=== PATIENT | female | born 1960 | race Caucasian/White ===

== ENCOUNTER 2020-10-28 08:42 | Outpatient (CLI) | payer BC, SELFPAY ==
--- NOTE | 2020-10-28 08:50 | MM_ITS ---
WS: [id number] BILATERAL DIGITAL SCREENING MAMMOGRAM WITH CAD CLINICAL INFORMATION: SCREENING HISTORY: Screening mammogram. No current complaints. COMPARISON: March 29, 2019 TECHNIQUE: Bilateral CC and MLO. FINDINGS: The breast are composed of extremely dense tissue, which can limit the detection of small underlying mass lesions. No suspicious focal mass, asymmetry, calcifications, or architectural distortion. No ev idence of malignancy. A few punctate calcifications. Vascular calcification. MM/[place] [id number] IMPRESSION: BI-RADS: 2-Benign FOLLOW UP: 1 Year Follow-up Recommend return to annual screening mammography.
== END 2020-10-28 08:43 | disposition home or self-care (01) ==
LOC: RADSHAW 08:49
PROVIDERS: PCP Nurse Practitioner Family; Visit Provider Nurse Practitioner Family
DX: Z12.31 Encounter for screening mammogram for malignant neoplasm of breast (principal)
CPT/HCPCS: 77067

== ENCOUNTER → 2021-04-18 08:34 | Outpatient (BNVA) | payer BC, SELFPAY | PROVIDERS: PCP Nurse Practitioner Family; Visit Provider Obstetrics & Gynecology | DX: N89.8 Other specified noninflammatory disorders of vagina (principal); L28.0 Lichen simplex chronicus | CPT/HCPCS: 87481; 87512; 87798; 87799 ==

== ENCOUNTER → 2021-09-03 13:56 | Outpatient (BNVA) | payer BC, SELFPAY | PROVIDERS: PCP Nurse Practitioner Family; Referring Provider Nurse Practitioner Family; Visit Provider Podiatrist Foot & Ankle Surgery | DX: M21.42 Flat foot [pes planus] (acquired), left foot (principal); M77.32 Calcaneal spur, left foot; M77.31 Calcaneal spur, right foot | CPT/HCPCS: 73630 ==

== ENCOUNTER 2022-02-04 14:02 | Outpatient (CLI) | payer BC, SELFPAY ==
--- NOTE | 2022-02-04 14:14 | MM_ITS ---
WS: [email or web address] VIEWS: MLO and CC views both breasts. 3D digital tomosynthesis is also included in this exam. Comparison made with prior exam of 11/28/2019. Findings: There was no sign of mass, architectural distortion or suspicious calcification in either breast. He terogeneously dense MM/[place] [id number] Impression: BI-RADS: 2-Benign FOLLOW-UP: 1 Year Follow-up This mammogram was also analyzed by the Computer Aided Detection System [employer].
== END 2022-02-04 14:03 | disposition home or self-care (01) ==
LOC: RADSHAW 14:04
PROVIDERS: PCP Nurse Practitioner Family; Visit Provider Nurse Practitioner Family
DX: Z12.31 Encounter for screening mammogram for malignant neoplasm of breast (principal)
CPT/HCPCS: 77063; 77067

== ENCOUNTER 2023-03-03 08:18 | Outpatient (CLI) | payer BC, SELFPAY ==
--- NOTE | 2023-03-03 08:35 | MM_ITS ---
WS: [email or web address] VIEWS: MLO and CC views both breasts. 3D digital tomosynthesis is also included in this exam. Comparison made with prior exam of 04/29/2016, 12/28/2016, 01/12/2018, 03/29/2019, 10/28/2020, 02/04/2022.. Findings: There was no sign of mass, architectural distortion or suspicious calcification in either breast. Th e breasts are heterogeneously dense MM/[place] [id number] Impression: BI-RADS: 2-Benign FOLLOW-UP: 1 Year Follow-up This mammogram was also analyzed by the Computer Aided Detection System R2 Imag e Pediatric Surgeon.
== END 2023-03-03 08:19 | disposition home or self-care (01) ==
PROVIDERS: PCP Nurse Practitioner Family; Visit Provider Nurse Practitioner Family
DX: Z12.31 Encounter for screening mammogram for malignant neoplasm of breast (principal)
CPT/HCPCS: 77063; 77067

== ENCOUNTER 2023-08-19 06:20 | Day surgery (SDC) | payer BC, SELFPAY ==
[2023-08-17 10:12] VITALS: BMI 27.8
[2023-08-19 06:33] VITALS: BP 150/94; PULSE 86; RESP 16; TEMP 36.2; O2SAT 96; BMI 27.8
[2023-08-19] MEDS: sodium chloride 0.9% 1,000 ML 30 ML IV (06:40)
--- NOTE | 2023-08-19 06:55 | ANES.PREANE2 ---
Pre-Anesthetic Assessment Height/Weight: Height 1.55 m Weight 66.678 kg Temp Pulse Resp BP Pulse Ox O2 Del Method 97.2 F L 86 16 150/94 96 Room Air 08/19/23 06:33 08/19/23 06:33 08/19/23 06:33 08/19/23 06:33 08/19/23 06:33 08/19/23 06:33 Preop Diagnosis: epigastric pain Operation Date: 08/19/23 07:30 Proposed Procedures p EGD 78205,R10.13(Not Applicable) - Sanjiv Rothman DO Familial anesthetic complications: none Was Beta Srinivasan taken within 24 hours: N/A Was Clonidine taken within 24 hours: N/A Last intake: Intake Last Liquid Date 08/18/23 Last Liquid Time 21:00 Last Solid Date 08/18/23 Last Solid Time 21:00 Last Intake: 21:00 Social No alcohol and No tobacco Exam alert, oriented x 3, clear to auscultation bilaterally and regular rate & rhythm slight murmor noted Airway Submandibular: within normal limits Cervical ROM: within normal limits Mallampati: Class I Dentition: full Pulmonary None reported CV/HEM Murmur None reported Hepatic None reported GI Gastroesophageal Reflux Disease Metabolic None reported Musc/skel Lower Back Pain and Osteoarthritis/DJD Neuropsych None reported Anesthetic Plan ASA status: 2 Anesthesia: MAC Risk of > 500 ml blood loss (7ml/kg in children): No Medications/Allergies Home Medications Medication Instructions Recorded Confirmed Last Taken Type calcium carb-vit [id number]-dflm 1 tab PO DAILY 02/13/21 08/19/23 08/18/23 History 333 mg-200 unit-133 mg-5 mg tablet coenzyme Q10 200 mg/gram oral 200 mg PO BID 02/13/21 08/19/23 08/18/23 History powder (H2Q CoQ10) glucosamine sulfate 2KCl 1,000 mg 1,000 mg PO BID 02/13/21 08/19/23 08/18/23 History tablet meloxicam 15 mg tablet 15 mg PO DAILY 02/13/21 08/19/23 08/18/23 History rosuvastatin 5 mg tablet 5 mg PO DAILY 02/13/21 08/19/23 08/18/23 History Custom molded Orthotics with #1 ea 09/03/21 08/19/23 Unknown Rx Metatarsal cushion gabapentin 100 mg capsule 300 mg PO BID 03/11/22 08/19/23 08/18/23 History multivitamin 1 tab PO DAILY 04/20/23 08/19/23 08/18/23 History pantoprazole 40 mg tablet,delayed 40 mg PO BID 6 weeks #84 tabs 08/10/23 08/19/23 08/18/23 Rx release (Protonix) Allergies Allergy/AdvReac Type Severity Reaction Status Date / Time No Known Allergies Allergy Verified 08/17/23 10:08 Current Medications Generic Name Dose Route Start Last Admin Trade Name Ollieq PRN Reason Stop Dose Admin Sodium Chloride 1,000 mls @ 30 mls/hr 08/19/23 06:30 08/19/23 06:40 Sodium Chloride 0.9% IV 08/20/23 06:29 30 mls/hr .Q24H YOGI Administration PFSH Anesthesia Medical History Heart murmur found many years ago Hypercholesteremia No pertinent past medical history neghx: htn,dm,thyroid,dvt/pe PCP: Delia Ferrari Peripheral neuropathy Postmenopausal atrophic vaginitis Surgical History H/O colonoscopy (~04/2021) Hx of hysterectomy (~2001) ANANYA due to Fibroids; ovaries spared Hx of melanoma excision (~2015) clear margins- back of her right arm Family History Father Heart disease Stroke Hypertension Diabetes Grandmother Breast cancer Maternal--dx age 50's Family/Other Breast cancer Maternal Aunt--dx age 50's Colon cancer Maternal Aunt dx age-- 40's Paternal Aunt dx age-- 40's Hypercholesteremia Maternal side in general Mother Hypercholesteremia Denies family history of Ovarian cancer Uterine cancer Thyroid disease Social History Smoking and tobacco/nicotine status: never used tobacco/nicotine Data Anesthesia Cardiac Studies: No Data to Display
--- NOTE | 2023-08-19 08:36 | W.PM.OPSUD ---
Surgery/Procedure H&P Update DATE OF PROCEDURE: August 19, 2023 DATE H&P PERFORMED: 08/10/23 H&P UPDATE INFORMATION: I have reviewed H&P completed within last 30 days, I have examined patient prior to procedure and No changes to prior documentation PREOP DIAGNOSIS: epigastric pain PLANNED PROCEDURE: Operation Date: 08/19/23 07:30 Proposed Procedures p EGD [id number],R10.13(Not Applicable) - Sanjiv Rothman DO
[2023-08-19 08:47] VITALS: BP 114/66; PULSE 75; RESP 16; TEMP 36.5; O2SAT 97
[2023-08-19 09:01] VITALS: BP 113/71; PULSE 74; RESP 18; O2SAT 94
--- NOTE | 2023-08-19 12:44 | ANE.PACU2 ---
Inpatient post-anesthesia follow up: Airway intact: Yes Vital signs: Temperature 97.7 F Pulse Rate 74 Respiratory Rate 18 Blood Pressure 113/71 Pulse Oximetry 94 Oxygen Delivery Me thod Room Air Oxygen Flow Rate 2 Fraction of Inspir ed Oxygen Hydration adequate: Yes Nausea and vomiting: No Pain level: 2 Mental status: Baseline
== END 2023-08-19 09:10 | disposition home or self-care (01) ==
PROVIDERS: PCP Nurse Practitioner Family; Visit Provider Surgery
PROC: 0DJ08ZZ Inspection of Upper Intestinal Tract, Via Natural or Artificial Opening Endoscopic (ICD-10-PCS; CPT 43235; principal; 2023-08-19 07:30)
DX: R10.13 Epigastric pain (principal); K29.50 Unspecified chronic gastritis without bleeding; K21.9 Gastro-esophageal reflux disease without esophagitis
CPT/HCPCS: 43239; 88305; 88342; J2704; J7030

== ENCOUNTER 2023-08-24 07:34 | Outpatient (CLI) | payer BC, SELFPAY ==
--- NOTE | 2023-08-24 08:00 | NM_ITS ---
WS: [email or web address] NUCLEAR MEDICINE HIDA SCAN CLINICAL INFORMATION: epigastric pain TECHNIQUE: Following intravenous administration of 8.0 mCi of technetium 99m mebrofenin, images of th e abdomen were obtained over the course of 60 minutes. Next, gallbladder ejection fraction was determ ined by obtaining preprandial and one-hour postprandial images of the gallbladder following oral yasmine stion of Ensure. COMPARISON: None. FINDINGS: Normal hepatic uptake at 5 minutes. Normal hepatic excretion. Gallbladder is visualized by 15 minutes . No evidence of acute cholecystitis. Normal common bile duct and small bowel activity visualized. Gallbladder ejection fraction 37% at the lower end of the range within normal limits. Recommend corre lation for chronic gallbladder dysfunction. IMPRESSION: 1. No evidence of acute cholecystitis. 2. Gallbladder ejection fraction 37% at the lower end of the range but within normal limits. Recomme nd correlation for chronic gallbladder dysfunction.
== END 2023-08-24 07:35 | disposition home or self-care (01) ==
LOC: RAD 07:35
PROVIDERS: PCP Nurse Practitioner Family; Visit Provider Surgery
DX: R10.13 Epigastric pain (principal)
CPT/HCPCS: 78227; A9537

== ENCOUNTER 2024-03-06 10:45 | Outpatient (CLI) | payer OTHER, SELFPAY ==
--- NOTE | 2024-03-06 10:49 | MM_ITS ---
WS: [id number] BILATERAL SCREENING DIGITAL TOMOSYNTHESIS MAMMOGRAM WITH CAD HISTORY: SCREENING COMPARISON: 03/03/2023, 02/04/2022, 01/12/2018 Bilateral CC and MLO views with tomosynthesis and synthetic mammography submitted. Computer aided det ection analyzed. Breast composition: There are scattered areas of fibroglandular density. No suspicious masses, microc alcifications or architectural distortion. Benign calcifications in each breast. MM/[place] [id number] IMPRESSION: BI-RADS: 2-Benign FOLLOW UP: 1 Year Follow-up
== END 2024-03-06 10:46 | disposition home or self-care (01) ==
LOC: RAD 10:45
PROVIDERS: PCP Nurse Practitioner Family; Visit Provider Nurse Practitioner Family
DX: Z12.31 Encounter for screening mammogram for malignant neoplasm of breast (principal); R92.323 Mammographic fibroglandular density, bilateral breasts
CPT/HCPCS: 77063; 77067

== ENCOUNTER 2025-03-12 13:04 | Outpatient (CLI) | payer OTHER, SELFPAY ==
--- NOTE | 2025-03-12 13:07 | MM_ITS ---
WS: [email or web address] BILATERAL 3D TOMOSYNTHESIS DIGITAL SCREENING MAMMOGRAPHY WITH CAD CLINICAL INFORMATION: SCREENING HISTORY: Screening mammogram. No current complaints. COMPARISON: 2023 TECHNIQUE: Bilateral CC and MLO views. FINDINGS: The breasts are composed of heterogeneous fibroglandular density tissue, which can limit the detection of small underlying mass lesions. No suspicious mass, asymmetry, calcifications, or architectural distortion. No evidence of malignancy. A few incidental punctate and lucent centered calcifications. MM/MM [facility] tomosynthesis [id number] IMPRESSION: DENSITY: The breasts are heterogeneously dense, which may obscure small masses. BI-RADS: 2 - Benign FOLLOW UP: 1 Year Follow-up Recommend return to annual screening mammography.
== END 2025-03-12 13:05 | disposition home or self-care (01) ==
PROVIDERS: PCP Nurse Practitioner Family; Visit Provider Nurse Practitioner Family
DX: Z12.31 Encounter for screening mammogram for malignant neoplasm of breast (principal); R92.333 Mammographic heterogeneous density, bilateral breasts; R92.1 Mammographic calcification found on diagnostic imaging of breast
CPT/HCPCS: 77063; 77067